=== PATIENT | female | born 1955 | race Caucasian/White ===

== ENCOUNTER 2017-02-09 13:36 | Emergency (ER) | payer OTHER ==
[~2017-02-09] VITALS: Ht 162.6 cm; Wt 115.1 kg
[~2017-02-09 13:36] MED LIST: ADVAIR 250-501 EACH IH; ADVAIR HFA120 INHALA IH; AMRIX30 MG PO; ASPIRIN325 MG PO; ATORVASTATIN CA40 MG PO; Aspirin Chewable PO; Avelox PO; BACTRIM,SEPT1 TABLET PO; BESIVANCE5 ML LEFT EYE; CIPROFLOXACIN500 M1 PO; DAILY VITE1 EAC1 PO; DELTASONE20 MG PO; DEXILANT60 MG PO; DIFLUCAN150 MG PO; DILAUDID4 MG PO; DUREZOL 0.100 DROP/5 LEFT EYE; ECOTRIN325 MG PO; ENDOCET 5-3251 EACH PO; FLAGYL500 MG PO; ILEVRO1.7 ML LEFT EYE; ISOSORBIDE MONO30 MG PO; LEVO-T200 MCG PO; LEVOTHYROXINE100 MCG PO; LEVOTHYROXINE137 MCG PO; LEXAPRO10 MG PO; LEXAPRO20 MG PO; LIPITOR20 MG PO; LIPITOR40 MG PO; LITE COAT ASPI325 M1 PO; MOTRIN800 MG PO; NITROSTAT0.4 MG SL; PERCOCET 5/31 TABLET PO; PROVENTIL HFA6.7 GM IH; RANEXA500 MG PO; REGLAN10 M1 PO; RELPAX40 MG PO; SYNTHROID137 MCG PO; SYNTHROID175 MCG PO; TRAZODONE HCL50 MG PO; TYLENOL EXTRA500 MG PO; VERAPAMIL ER; VERAPAMIL ER240 MG PO; VERAPAMIL HCL240 MG PO; ZESTRIL20 MG PO; ZITHROMAX Z-PA250 MG PO; ZOFRAN ODT4 MG PO
[2017-02-09 14:21] LABS: HEMATOCRIT 45.2 % (36.0-46.0); MCH 29.5 PG (29.0-34.0); MCHC 32.7 G/DL (30.0-36.0); MCV 90.2 FL (83-99); MEAN PLAT.VOLUME 9.7 uM^3 (9.5-12.4); PLATELET COUNT 270 K/uL (156-360); RBC DIS.WIDTH-SD 42.9 % (39-53); RED BLOOD COUNT 5.01 M/uL (3.80-5.20); WHITE BLOOD COUNT 7.8 K/uL (4.1-10.2)
[2017-02-09 14:30] LABS: CHLORIDE 110 mEq/L (99-109); SODIUM 142 mEq/L (136-147)
[2017-02-09 14:33] LABS: GLUCOSE 82 mg/dL (70-99)
[2017-02-09 14:34] LABS: ANION GAP 9 MEQ/L (2-14)
[2017-02-09 14:35] LABS: TOTAL BILIRUBIN 0.5 mg/dL (0.0-1.0)
[2017-02-09 14:36] LABS: ALKALINE PHOSPHATASE 72 IU/L (3-129); GFR ESTIMATE (CALCULATED) > 59 mL/min/
[2017-02-09 14:37] LABS: UREA NITROGEN (BUN) 18 mg/dL (9-23)
[2017-02-09 15:45] LABS: ADD MIUA? YES; BILIRUBIN NEGATIVE; BLOOD NEGATIVE; COLOR YELLOW ((YELLOW)); GLUCOSE (STRIP) NEGATIVE; KETONES NEGATIVE; LEUKOCYTES SMALL; NITRITE NEGATIVE; PROTEIN (STRIP) NEGATIVE; SPECIFIC GRAVITY 1.024 (1.000-1.030); UROBILINOGEN 0.2 MG/DL (0.2-1.0)
[2017-02-09 16:03] LABS: BACTERIA NONE SEEN /HPF; EPITHELIAL CELLS RARE /HPF; MUCUS TRACE /LPF; RED BLOOD CELLS 0-5 /HPF (0-5); UCUL ADDED? NO
[2017-02-09] MEDS ORDERED: ZOFRAN4 MG PO (16:14)
[2017-02-09 16:21] VITALS: BP 148/76
== END 2017-02-09 16:22 | disposition home or self-care (01) ==
LOC: EME 13:36
PROVIDERS: Nurse Practitioner Family
DX: R10.11 Right upper quadrant pain (principal); J45.909 Unspecified asthma, uncomplicated; E78.5 Hyperlipidemia, unspecified; I10 Essential (primary) hypertension; K21.9 Gastro-esophageal reflux disease without esophagitis
CPT/HCPCS: 74176; 80053; 81003; 85027; 99281; 99284

== ENCOUNTER 2017-06-05 12:18 | Observation (INO) | payer OTHER ==
[~2017-06-05] VITALS: Ht 165.1 cm; Wt 120.7 kg
[~2017-06-05 12:18] MED LIST changes: +ZOFRAN4 MG PO
[2017-06-05 13:20] LABS: HEMATOCRIT 46.8 % (36.0-46.0); MCH 30.1 PG (29.0-34.0); MCHC 33.1 G/DL (30.0-36.0); MCV 90.9 FL (83-99); MEAN PLAT.VOLUME 9.8 uM^3 (9.5-12.4); PLATELET COUNT 269 K/uL (156-360); RBC DIS.WIDTH-CV 12.4 % (11.8-14.6); RBC DIS.WIDTH-SD 41.5 % (39-53); RED BLOOD COUNT 5.15 M/uL (3.80-5.20); WHITE BLOOD COUNT 7.3 K/uL (4.1-10.2)
[2017-06-05 13:32] LABS: CHLORIDE 107 mEq/L (99-109); POTASSIUM 4.1 mEq/L (3.7-5.4); SODIUM 142 mEq/L (136-147)
[2017-06-05 13:34] LABS: GLUCOSE 99 mg/dL (70-99)
[2017-06-05 13:36] LABS: ANION GAP 12 MEQ/L (2-14)
[2017-06-05 13:38] LABS: GFR ESTIMATE (CALCULATED) > 59 mL/min/
[2017-06-05 13:39] LABS: UREA NITROGEN (BUN) 15 mg/dL (9-23)
[2017-06-05 13:42] LABS: TROP-I INTERPRETATION NEGATIVE; TROPONIN-I < 0.01 ng/mL (0.0-0.30)
[2017-06-05 15:44] LABS: TROP-I INTERPRETATION NEGATIVE; TROPONIN-I < 0.01 ng/mL (0.0-0.30)
[2017-06-05] MEDS ORDERED: ATORVASTATIN CA80 MG PO (17:00)
[2017-06-05] MEDS ORDERED: ASPIRIN81 M2 PO (17:02)
[2017-06-05 17:27] LABS: D-DIMER ELISA 0.36 mg/L FEU (< 0.57)
[2017-06-05 18:30] VITALS: BP 150/72
[2017-06-05 21:11] LABS: TROP-I INTERPRETATION NEGATIVE; TROPONIN-I < 0.01 ng/mL (0.0-0.30)
[2017-06-05 23:59] VITALS: BP 107/55
[2017-06-06 03:59] VITALS: BP 101/57
[2017-06-06 05:55] LABS: HEMATOCRIT 45.2 % (36.0-46.0); MCH 30.5 PG (29.0-34.0); MCV 92.6 FL (83-99); MEAN PLAT.VOLUME 9.4 uM^3 (9.5-12.4); PLATELET COUNT 260 K/uL (156-360); RBC DIS.WIDTH-CV 12.6 % (11.8-14.6); RED BLOOD COUNT 4.88 M/uL (3.80-5.20); WHITE BLOOD COUNT 7.6 K/uL (4.1-10.2)
[2017-06-06 06:22] LABS: ANION GAP 9 MEQ/L (2-14); CHLORIDE 105 MEQ/L (99-109); GFR ESTIMATE (CALCULATED) > 59 mL/min/; GLUCOSE 100 mg/dL (70-99); HDL CHOLESTEROL 38 MG/DL (Desirable>=50); LDL CHOLESTEROL 120 mg/dL (Desirable<100); NON-HDL CHOLESTEROL 157 mg/dL (Desirable<160); POTASSIUM 4.5 MEQ/L (3.7-5.4); SAMPLE HEMOLYSIS CHECK 0; SAMPLE ICTERIC CHECK 0; SAMPLE LIPEMIA CHECK 0; SODIUM 141 MEQ/L (136-147); TOTAL CHOLESTEROL 195 mg/dL (Desirable<200); TRIGLYCERIDES 186 MG/DL (Normal: <150); UREA NITROGEN (BUN) 15 mg/dL (9-23)
[2017-06-06 07:06] LABS: Estimated Average Glucose 117 mg/dL (70-123); HEMOGLOBIN A1c (GLYCOHEMOGLOB) 5.7 % HGB (Below 5.7)
[2017-06-06 07:28] VITALS: BP 121/67
[2017-06-06 10:05] VITALS: BP 103/56
[2017-06-06] MEDS ORDERED: RANEXA500 MG PO (11:42)
[2017-06-06] MEDS ORDERED: LISINOPRIL10 MG PO (11:42)
[2017-06-06 11:55] VITALS: BP 123/56
== END 2017-06-06 12:51 | disposition home or self-care (01) ==
LOC: EME 12:18 → EDOF 16:46 → 5WEST 16:46
PROVIDERS: Emergency Medicine; Internal Medicine
DX: R00.2 Palpitations (principal); R07.9 Chest pain, unspecified; M25.512 Pain in left shoulder; I25.118 Atherosclerotic heart disease of native coronary artery with other forms of angina pectoris; I44.4 Left anterior fascicular block; I10 Essential (primary) hypertension; E78.5 Hyperlipidemia, unspecified; E66.01 Morbid (severe) obesity due to excess calories; Z68.41 Body mass index [BMI] 40.0-44.9, adult; E03.9 Hypothyroidism, unspecified; K21.9 Gastro-esophageal reflux disease without esophagitis; F41.9 Anxiety disorder, unspecified; Z82.49 Family history of ischemic heart disease and other diseases of the circulatory system; Z91.09 Other allergy status, other than to drugs and biological substances; Z91.041 Radiographic dye allergy status
CPT/HCPCS: 71020; 73030; 80048; 80061; 83036; 84443; 84484; 85027; 85379; 93005; 99281; 99285; G0378

== ENCOUNTER 2017-11-16 08:41 | Observation (INO) | payer OTHER ==
[~2017-11-16] VITALS: Ht 165.1 cm; Wt 113.1 kg
[~2017-11-16 08:41] MED LIST changes: +ASPIRIN81 M2 PO; +ATORVASTATIN CA80 MG PO; +LISINOPRIL10 MG PO
[2017-11-16 09:31] LABS: HEMATOCRIT 46.2 % (36.0-46.0); HEMOGLOBIN 15.5 G/DL (11.9-15.5); MCH 30.1 PG (29.0-34.0); MCHC 33.5 G/DL (30.0-36.0); MCV 89.7 FL (83-99); PLATELET COUNT 252 K/uL (156-360); RBC DIS.WIDTH-CV 12.5 % (11.8-14.6); RBC DIS.WIDTH-SD 41.2 % (39-53); RED BLOOD COUNT 5.15 M/uL (3.80-5.20); WHITE BLOOD COUNT 10.7 K/uL (4.1-10.2)
[2017-11-16 09:39] LABS: ALBUMIN 4.1 g/dL (3.2-4.8)
[2017-11-16 09:40] LABS: CHLORIDE 108 mEq/L (99-109); POTASSIUM 4.4 mEq/L (3.7-5.4); SODIUM 142 mEq/L (136-147)
[2017-11-16 09:42] LABS: GLUCOSE 102 mg/dL (70-99)
[2017-11-16 09:44] LABS: TOTAL BILIRUBIN 0.8 mg/dL (0.0-1.0)
[2017-11-16 09:45] LABS: ALKALINE PHOSPHATASE 92 IU/L (3-129)
[2017-11-16 09:46] LABS: CREATININE 0.9 mg/dL (0.6-1.3); GFR ESTIMATE (CALCULATED) > 59 mL/min/
[2017-11-16 09:47] LABS: AST (GOT) 20 IU/L (2-34); UREA NITROGEN (BUN) 15 mg/dL (9-23)
[2017-11-16 09:49] LABS: ALT (GPT) 12 IU/L (3-49)
[2017-11-16 10:30] LABS: APPEARANCE CLOUDY ((CLEAR)); BILIRUBIN SMALL; BLOOD NEGATIVE; COLOR AMBER ((YELLOW)); GLUCOSE (STRIP) NEGATIVE; KETONES NEGATIVE; LEUKOCYTES MODERATE; NITRITE NEGATIVE; PROTEIN (STRIP) 100; SPECIFIC GRAVITY 1.035 (1.000-1.030)
[2017-11-16 11:02] LABS: BACTERIA 1+ /HPF; EPITHELIAL CELLS 1+ /HPF; MUCUS RARE /LPF; RED BLOOD CELLS 0-5 /HPF (0-5); UCUL ADDED? YES
[2017-11-16 11:03] LABS: CALCIUM OXALATE CRYSTALS 2+ /HPF
[2017-11-16] MEDS ORDERED: LISINOPRIL20 MG PO (13:37)
[2017-11-16] MEDS ORDERED: LEVOTHYROXINE112 MCG PO (13:39)
[2017-11-16] MEDS ORDERED: LEVOTHYROXINE100 MCG PO (13:39)
[2017-11-16 16:22] VITALS: BP 128/69
[2017-11-16 19:26] VITALS: BP 135/65
[2017-11-16 23:50] VITALS: BP 90/53
[2017-11-17 03:45] VITALS: BP 106/55
[2017-11-17 06:09] LABS: HEMATOCRIT 41.4 % (36.0-46.0); HEMOGLOBIN 13.4 G/DL (11.9-15.5); MCH 30.2 PG (29.0-34.0); MCHC 32.4 G/DL (30.0-36.0); MCV 93.5 FL (83-99); PLATELET COUNT 230 K/uL (156-360); RBC DIS.WIDTH-SD 44.6 % (39-53); RED BLOOD COUNT 4.43 M/uL (3.80-5.20); WHITE BLOOD COUNT 8.9 K/uL (4.1-10.2)
[2017-11-17 06:27] VITALS: BP 100/65
[2017-11-17 06:28] LABS: CHLORIDE 107 MEQ/L (99-109); GFR ESTIMATE (CALCULATED) 41 mL/min/; GLUCOSE 125 mg/dL (70-99); POTASSIUM 4.5 MEQ/L (3.7-5.4); SODIUM 139 MEQ/L (136-147); UREA NITROGEN (BUN) 20 mg/dL (9-23)
[2017-11-17 06:31] LABS: CREATININE 1.4 MG/DL (0.6-1.3)
[2017-11-17 12:40] VITALS: BP 104/56
[2017-11-17 15:00] VITALS: BP 110/56
[2017-11-17 19:54] VITALS: BP 119/59
[2017-11-17 23:46] VITALS: BP 115/55
[2017-11-18 03:43] VITALS: BP 104/51
[2017-11-18 07:24] VITALS: BP 114/50
[2017-11-18 07:59] LABS: HEMOGLOBIN 12.3 G/DL (11.9-15.5); MCH 30.1 PG (29.0-34.0); MCHC 32.4 G/DL (30.0-36.0); MCV 92.9 FL (83-99); PLATELET COUNT 211 K/uL (156-360); RBC DIS.WIDTH-CV 12.7 % (11.8-14.6); RBC DIS.WIDTH-SD 43.3 % (39-53); RED BLOOD COUNT 4.09 M/uL (3.80-5.20)
[2017-11-18 08:19] LABS: CHLORIDE 110 MEQ/L (99-109); GFR ESTIMATE (CALCULATED) > 59 mL/min/; GLUCOSE 108 mg/dL (70-99); POTASSIUM 3.7 MEQ/L (3.7-5.4); SODIUM 141 MEQ/L (136-147); UREA NITROGEN (BUN) 8 mg/dL (9-23)
[2017-11-18 13:19] LABS: STOOL OCCULT BLD 1ST SPECIMEN NEGATIVE
[2017-11-18 15:07] VITALS: BP 125/58
[2017-11-18 23:53] VITALS: BP 116/57
[2017-11-18 23:58] VITALS: BP 105/57
[2017-11-19 07:47] VITALS: BP 126/55
[2017-11-19] MEDS ORDERED: ACIDOPHILUS LA1 EAC1 PO ×2 (09:10→09:30)
[2017-11-19] MEDS ORDERED: FLAGYL500 MG PO ×2 (09:10→09:30)
[2017-11-19] MEDS ORDERED: CEFDINIR300 MG PO ×2 (09:10→09:30)
== END 2017-11-19 09:51 | disposition home or self-care (01) ==
LOC: EME 08:41 → 2EAST 12:19 → EDOF 12:19 → 2EAST 12:19 → ENRESERV 12:19 → 2EAST 15:24
PROVIDERS: Hospitalist; Internal Medicine; Nurse Practitioner Family
DX: K57.32 Diverticulitis of large intestine without perforation or abscess without bleeding (principal); R10.9 Unspecified abdominal pain; E03.9 Hypothyroidism, unspecified; I25.10 Atherosclerotic heart disease of native coronary artery without angina pectoris; F41.9 Anxiety disorder, unspecified; N17.9 Acute kidney failure, unspecified; N39.0 Urinary tract infection, site not specified; I10 Essential (primary) hypertension; E78.5 Hyperlipidemia, unspecified; E66.01 Morbid (severe) obesity due to excess calories; Z68.41 Body mass index [BMI] 40.0-44.9, adult; K21.9 Gastro-esophageal reflux disease without esophagitis; Z90.49 Acquired absence of other specified parts of digestive tract; Z91.041 Radiographic dye allergy status; Z91.09 Other allergy status, other than to drugs and biological substances
CPT/HCPCS: 74176; 80048; 80053; 81003; 82272; 83605; 85027; 87040; 87086; 94799; 99281; 99285; C9113; G0378; J0744; J1170; J1200; J1650; J1885; J2270; J2405; J2543; J2765; J3010; J7030; J7050; S0028; S0030

== ENCOUNTER 2018-02-20 11:50 | Observation (INO) | payer OTHER ==
[~2018-02-20] VITALS: Ht 165.1 cm; Wt 115.6 kg
[~2018-02-20 11:50] MED LIST changes: +ACIDOPHILUS LA1 EAC1 PO; +CEFDINIR300 MG PO; +LEVOTHYROXINE112 MCG PO; +LISINOPRIL20 MG PO
[2018-02-20 12:28] LABS: HEMATOCRIT 46.9 % (36.0-46.0); MCH 31.2 PG (29.0-34.0); MCHC 34.1 G/DL (30.0-36.0); MCV 91.4 FL (83-99); PLATELET COUNT 256 K/uL (156-360); RBC DIS.WIDTH-CV 12.8 % (11.8-14.6); RBC DIS.WIDTH-SD 43.3 % (39-53); RED BLOOD COUNT 5.13 M/uL (3.80-5.20); WHITE BLOOD COUNT 8.8 K/uL (4.1-10.2)
[2018-02-20 12:37] LABS: CHLORIDE 105 mEq/L (99-109); POTASSIUM 4.6 mEq/L (3.7-5.4); SODIUM 141 mEq/L (136-147)
[2018-02-20 12:39] LABS: GLUCOSE 90 mg/dL (70-99)
[2018-02-20 12:43] LABS: CREATININE 1.2 mg/dL (0.6-1.3); GFR ESTIMATE (CALCULATED) 48 mL/min/
[2018-02-20 12:44] LABS: UREA NITROGEN (BUN) 22 mg/dL (9-23)
[2018-02-20 12:50] LABS: TROP-I INTERPRETATION NEGATIVE; TROPONIN-I < 0.01 ng/mL (0.0-0.30)
[2018-02-20] MEDS ORDERED: RESTASIS MULTI5.5 ML BOTH EYES (14:36)
[2018-02-20 15:46] VITALS: BP 148/76
[2018-02-20 15:48] LABS: HDL CHOLESTEROL 45 MG/DL (Desirable>=50); LDL CHOLESTEROL 117 mg/dL (Desirable<100); NON-HDL CHOLESTEROL 166 mg/dL (Desirable<160); TOTAL CHOLESTEROL 211 mg/dL (Desirable<200); TRIGLYCERIDES 247 MG/DL (Normal: <150)
[2018-02-20 17:29] LABS: TROP-I INTERPRETATION NEGATIVE; TROPONIN-I < 0.01 ng/mL (0.0-0.30)
[2018-02-20 20:00] VITALS: BP 119/60
[2018-02-20 22:50] LABS: TROP-I INTERPRETATION NEGATIVE; TROPONIN-I < 0.01 ng/mL (0.0-0.30)
[2018-02-20 23:15] VITALS: BP 140/72
[2018-02-21 03:34] VITALS: BP 116/64
[2018-02-21 05:48] LABS: HEMATOCRIT 42.8 % (36.0-46.0); MCH 30.2 PG (29.0-34.0); MCHC 32.7 G/DL (30.0-36.0); MCV 92.4 FL (83-99); PLATELET COUNT 229 K/uL (156-360); RBC DIS.WIDTH-CV 12.9 % (11.8-14.6); RED BLOOD COUNT 4.63 M/uL (3.80-5.20); WHITE BLOOD COUNT 6.9 K/uL (4.1-10.2)
[2018-02-21 06:02] LABS: CHLORIDE 108 MEQ/L (99-109); GFR ESTIMATE (CALCULATED) > 59 mL/min/; GLUCOSE 97 mg/dL (70-99); POTASSIUM 3.9 MEQ/L (3.7-5.4); SODIUM 141 MEQ/L (136-147); UREA NITROGEN (BUN) 17 mg/dL (9-23)
[2018-02-21 08:25] VITALS: BP 107/60
[2018-02-21 12:35] VITALS: BP 112/63
== END 2018-02-21 15:27 | disposition home or self-care (01) ==
LOC: EME 11:50 → EDOF 14:08 → 5WEST 14:08 → EDOF 14:08 → ENRESERV 14:10 → EDOF 14:23 → ENRESERV 14:43 → 5WEST 15:36
PROVIDERS: Hospitalist
DX: R07.9 Chest pain, unspecified (principal); K21.9 Gastro-esophageal reflux disease without esophagitis; E89.0 Postprocedural hypothyroidism; I10 Essential (primary) hypertension; I25.10 Atherosclerotic heart disease of native coronary artery without angina pectoris; E78.5 Hyperlipidemia, unspecified; K57.30 Diverticulosis of large intestine without perforation or abscess without bleeding; R94.31 Abnormal electrocardiogram [ECG] [EKG]; E66.01 Morbid (severe) obesity due to excess calories; R06.00 Dyspnea, unspecified; R42 Dizziness and giddiness; G47.33 Obstructive sleep apnea (adult) (pediatric); Z91.19 Patient's noncompliance with other medical treatment and regimen; F41.9 Anxiety disorder, unspecified; G43.909 Migraine, unspecified, not intractable, without status migrainosus; Z88.1 Allergy status to other antibiotic agents; Z91.041 Radiographic dye allergy status; Z91.048 Other nonmedicinal substance allergy status; Z82.49 Family history of ischemic heart disease and other diseases of the circulatory system
CPT/HCPCS: 71046; 74176; 80048; 80061; 84484; 85027; 93005; 99281; 99285; G0378; J1650; J2405; J7030; S0028